=== PATIENT | male | born 1960 | race Two or more races ===

== ENCOUNTER 2022-11-29 09:34 | Emergency (ER) | payer OTHER ==
[~2022-11-29] VITALS: Ht 165.1 cm; Wt 72.6 kg
== END 2022-11-29 15:57 | disposition home or self-care (01) ==
LOC: ER 09:34
PROVIDERS: Emergency Medicine
DX: F31.89 Other bipolar disorder (principal); Z91.013 Allergy to seafood
CPT/HCPCS: 36415; 93005; 96365; 96366; 99284; J7030